=== PATIENT | male | born 1955 | race Caucasian/White ===

== ENCOUNTER → 2016-10-04 | Outpatient (CLI) | payer OTHER, BC ==
[~2016-10-04] MED LIST: FLAGYL500 MG PO; NOMEDS *; PHENERGAN 12.12.5 M1 PO
--- NOTE | 2016-10-04 16:06 | RADIOLOGY REPORT PS360 ---
EXAM: CERVICAL SPINE 4 OR 5 VIEWS HISTORY: THORACIC OUTLET SYNDROME ORDERING PHYSICIAN: Rufino Miner MD PATIENT AGE: 61 years COMPARISON: None FINDINGS: Normal alignment. No fracture or dislocation. No lytic or blastic change. Mild facet arthritic changes are present at C4, C5, and C6. There is minimal left-sided foraminal narrowing at C4-C5 and mild right foraminal narrowing at C5-C6. The disc spaces are well-preserved. No fracture or dislocation. No lytic or blastic change. Incidental vascular calcifications are present in the carotid arteries. There is no evidence of cervical ribs IMPRESSION: 1. Mild spondylosis of the facets with mild left-sided foraminal narrowing at C4-5 and mild right foraminal narrowing at C5-6. 2. Otherwise negative cervical spine
== END ==
LOC: RAD 14:14
DX: G54.0 Brachial plexus disorders (principal)